=== PATIENT | male | born 1985 | race Caucasian/White ===

== ENCOUNTER 2017-11-05 16:42 | Emergency (ER) | payer SELFPAY ==
[~2017-11-05] VITALS: Ht 165.1 cm; Wt 78.0 kg
[2017-11-05 21:33] VITALS: BP 119/67
== END 2017-11-05 21:39 | disposition home or self-care (01) ==
LOC: ER 16:54
DX: G44.209 Tension-type headache, unspecified, not intractable (principal)
CPT/HCPCS: 70450